=== PATIENT | male | born 1965 | race Two or more races ===

== ENCOUNTER → 2018-05-20 | Day surgery (SDC) | payer OTHER ==
[~2018-05-20] VITALS: Ht 162.6 cm; Wt 90.7 kg
[~2018-05-20] MED LIST: GLYCOPYRROLATE 0.2 MG/ML 1ML VIAL IV ONE; KETAMINE HCL 1 ML ONE; MIDAZOLAM HCL 1MG/1ML-2 ML VIAL ONE; NEOSTIGMINE 1 MG/ML INJ (10mg/10ML VIAL) IV ONE; PROPOFOL 10 MG/ML 20 ML IV ONE; ROCURONIUM 10MG/ML 10ML VIAL IV ONE; ceFAZolin 1GM/50ML 50 ML IV ONE; fentaNYL CITRATE 100 MCG/2 ML VL ONE
[2018-05-20 13:45] VITALS: BP 112/75
== END | disposition home or self-care (01) ==
LOC: SUR 06:50 → EEVIPCON 06:50
PROVIDERS: ATTEND Surgery
DX: K61.0 Anal abscess (principal); E11.9 Type 2 diabetes mellitus without complications; Z98.890 Other specified postprocedural states
CPT/HCPCS: 46050; 82962; J0690; J2250; J2704; J3010